=== PATIENT | female | born 2000 | race African-American/Black ===

== ENCOUNTER 2019-09-28 16:17 | Emergency (ER) | payer OTHER ==
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
[2019-09-28 16:42] VITALS: BP 111/68; PULSE 89; TEMP 98.2; BMI 23.3
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
== END 2019-09-28 18:15 | disposition home or self-care (01) ==
LOC: JERFT 16:17
DX: S13.4XXA Sprain of ligaments of cervical spine, initial encounter (principal); M62.838 Other muscle spasm; Y04.2XXA Assault by strike against or bumped into by another person, initial encounter; Y93.89 Activity, other specified; Y92.811 Bus as the place of occurrence of the external cause; Y99.8 Other external cause status; Y07.9 Unspecified perpetrator of maltreatment and neglect
CPT/HCPCS: 72050-TC-FY; 99283-25

== ENCOUNTER 2021-02-14 04:59 | Emergency (ER) | payer OTHER ==
[2021-02-14 05:28] VITALS: BP 100/64; BMI 19.5
[2021-02-14] MEDS ORDERED: SODIUM CHLORIDE IV ONE (05:51)
[2021-02-14] MEDS ORDERED: ACETAMINOPHEN 1000 MG/100 ML VIAL (NON FORMULARY) IVPB ONE (05:52)
[2021-02-14] MEDS ORDERED: ACETAMINOPHEN INJECTION 100 ML IVPB ONE (06:33)
[2021-02-14 06:49] LABS: BASO % 0.7 % (0-2.0); HEMATOCRIT 29.4 % (32.4-45.2); HEMOGLOBIN 9.5 GM/dL (10.7-15.3); LYMPH % 3.8 % (8-40); MCH 21.7 pg (25.7-33.7); MCHC 32.2 g/dl (32.0-36.0); MEAN CELL VOLUME 67.4 fl (80-96); MEAN PLT VOLUME 8.4 fl (7.5-11.1); MONO % 9.7 % (3.8-10.2); NEUT % 85.8 % (42.8-82.8); PLATELET COUNT 274 10^3/uL (134-434); RBC 4.36 M/mm3 (3.60-5.2); RDW 18.4 % (11.6-15.6); WHITE BLOOD COUNT 6.2 K/mm3 (4.0-10.0)
[2021-02-14 06:58] LABS: INR 1.21 (0.83-1.09); PROTHROMBIN TIME (PATIENT) 14.6 SEC (9.7-13.0)
[2021-02-14 07:13] LABS: CHLORIDE 104 mmol/L (98-107); SODIUM 137 mmol/L (136-145)
[2021-02-14 07:15] LABS: ANION GAP 9 MMOL/L (8-16); BLOOD UREA NITROGEN 5.8 mg/dL (7-18); CALCIUM 8.7 mg/dL (8.5-10.1); CO2 24 mmol/L (21-32); GLUCOSE,RANDOM 91 mg/dL (74-106)
[2021-02-14 07:18] LABS: CREATININE 0.7 mg/dL (0.55-1.3); SGPT/ALT 12 U/L (13-61)
[2021-02-14 07:19] LABS: SGOT/AST 14 U/L (15-37)
[2021-02-14 07:20] LABS: BILIRUBIN,TOTAL 0.4 mg/dL (0.2-1); TOT PROT 7.8 g/dl (6.4-8.2)
[2021-02-14 07:21] LABS: ALK PHOS 59 U/L (45-117)
[2021-02-14 07:24] LABS: LDH 166 U/L (84-246)
[2021-02-14 07:42] VITALS: TEMP 98.9
[2021-02-14 08:06] LABS: URINE APPEARANCE CLEAR; URINE BILIRUBIN NEGATIVE (NEGATIVE); URINE COLOR YELLOW; URINE GLUCOSE (UA) NEGATIVE (NEGATIVE); URINE KETONE 2+ (NEGATIVE); URINE LEUK ESTERASE NEGATIVE (NEGATIVE); URINE NITRITE NEGATIVE (NEGATIVE); URINE PROTEIN NEGATIVE (NEGATIVE); URINE UROBILINOGEN 0.2 mg/dL (0.2-1.0)
[2021-02-14] MEDS ORDERED: SODIUM CHLORIDE 0.9% 500 ML INFUS.BAG IV ONE (08:15)
[2021-02-14 09:34] LABS: ANISOCYTOSIS 1+; MACROCYTOSIS 1+; PLATELET ESTIMATE NORMAL
[2021-02-14 09:35] VITALS: PULSE 89
== END 2021-02-14 09:49 | disposition home or self-care (01) ==
LOC: JER 04:59
PROC: 3E0333Z Introduction of Anti-inflammatory into Peripheral Vein, Percutaneous Approach (ICD-10-PCS; principal; 2021-02-14)
PROC: 3E0337Z Introduction of Electrolytic and Water Balance Substance into Peripheral Vein, Percutaneous Approach (ICD-10-PCS; 2021-02-14)
DX: M79.10 Myalgia, unspecified site (principal); R50.9 Fever, unspecified; M54.5 Low back pain
CPT/HCPCS: 36415; 71045-TC-FY; 80053; 81003; 82728; 83605; 83615; 84484; 84703; 85025; 85610; 85730; 86140; 87040; 87086; 93005; 93010; 99285-25; C9803; J0131; U0003; U0005

== ENCOUNTER 2024-07-30 17:39 | Emergency (ER) | payer OTHER ==
[2024-07-30 17:51] VITALS: BP 107/74; PULSE 98; RESP 18; TEMP 98.4; BMI 20.5
[2024-07-30 20:26] LABS: HEMATOCRIT 31.8 % (32.4-45.2); HEMOGLOBIN 9.9 GM/dL (10.7-15.3); MCH 20.5 pg (25.7-33.7); MCHC 31.1 g/dl (32.0-36.0); MEAN PLT VOLUME 8.4 fl (7.5-11.1); PLATELET COUNT 292 10^3/uL (134-434); RBC 4.82 M/mm3 (3.60-5.2); RDW 22.3 % (11.6-15.6); WHITE BLOOD COUNT 5.4 K/mm3 (4.0-10.0)
== END 2024-07-30 21:20 | disposition home or self-care (01) ==
LOC: JER 17:39
DX: R07.89 Other chest pain (principal); Z20.822 Contact with and (suspected) exposure to COVID-19
CPT/HCPCS: 0241U-QW; 36415; 71046-TC-FY; 85027; 93005; 93010; 99285-25